=== PATIENT | male | born 1990 | race Caucasian/White ===

== ENCOUNTER 2018-12-22 21:35 | Emergency (ER) | payer MEDICAID ==
[~2018-12-22] VITALS: Ht 182.9 cm; Wt 102.1 kg
[2018-12-22 21:53] VITALS: BP 135/81
--- NOTE | 2018-12-22 21:57 | NUR ---
PT AMBUALATED TO LOBBY IN STABLE CONDITION.
--- NOTE | 2018-12-23 00:02 | NUR ---
PT TO ER BED 5
--- NOTE | 2018-12-23 00:10 | NUR ---
28/M PRESENTS TO ED, C/O "NOT FEELING WELL" AND "FEELING TIRED" AND NAUSEA X2 WEEKS. PT DENIES CP, SOB, VOMITING. PT REPORTS INTERMITTMENT MILD L SIDED NECK PAIN. PT AOX4, GCS 15, RR EVEN AND UNLABORED HX THYROID PROBLEMS NO RX.
--- NOTE | 2018-12-23 00:28 | NUR ---
PT TO ER BED 11
[2018-12-23] MEDS ORDERED: NACL 0.9% 1,000 ML IV ONE (00:45)
[2018-12-23 01:04] LABS: BASOPHILS # (AUTO) 0.1 K/uL (0.00-0.22); BASOPHILS % (AUTO) 0.7 % (0.0-2.0); EOSINOPHILS # (AUTO) 0.5 K/uL (0-0.4); EOSINOPHILS % (AUTO) 5.4 % (0.0-4.0); HEMATOCRIT 47.6 % (36-52); HEMOGLOBIN 15.9 g/dL (12.0-18.0); LYMPHOCYTES # (AUTO) 2.9 K/uL (2.0-11.5); LYMPHOCYTES % (AUTO) 34.2 % (20.5-51.1); MEAN CORPUSCULAR HEMOGLOBIN 28 pg (27-31); MEAN CORPUSCULAR HGB CONC 33 g/dL (33-37); MONOCYTES # (AUTO) 0.7 K/uL (0.8-1.0); MONOCYTES % (AUTO) 8.3 % (1.7-9.3); NEUTROPHILS # (AUTO) 4.4 K/uL (1.8-7.7); NEUTROPHILS % (AUTO) 51.4 % (42.2-75.2); PLATELET COUNT (AUTO) 293 K/uL (140-450); RED CELL DISTRIBUTION WIDTH 12.8 % (11.6-13.7); WHITE BLOOD COUNT (AUTO) 8.6 K/uL (4.8-10.8)
[2018-12-23 01:16] LABS: ANION GAP 10.3 (8-16); CARBON DIOXIDE 31.4 mmol/L (21-32); POTASSIUM 3.7 mmol/L (3.5-5.1)
--- NOTE | 2018-12-23 01:20 | NUR ---
PT REFUSED IV MANAGMENT AND NS BOLUS. PT STATED HE JUST WANTED LABS DRAWN AND DOES NOT WANT TO GET POKED AGAIN. ER MD MADE AWARE.
[2018-12-23 01:31] LABS: TOTAL BILIRUBIN 0.6 mg/dL (0.0-1.0)
[2018-12-23 01:32] LABS: ALBUMIN 4.1 g/dL (3.4-5.0); THYROID STIMULATING HORMONE 4.93 uIU/mL (0.34-3.74)
[2018-12-23 01:50] VITALS: BP 135/81
--- NOTE | 2018-12-23 01:50 | NUR ---
Patient discharged with v/s stable. Written and verbal after care instructions given and explained. Patient verbalized understanding. Ambulatory with steady gait. All questions addressed prior to discharge. Advised to follow up with PMD.
== END 2018-12-23 01:50 | disposition home or self-care (01) ==
LOC: MED 21:35
DX: E03.9 Hypothyroidism, unspecified (principal)
CPT/HCPCS: 36415; 80053; 84443; 85025; 99283